=== PATIENT | female | born 1985 | race Caucasian/White ===

== ENCOUNTER → 2016-10-29 09:11 | Outpatient (CLI) | payer BC | END | disposition home or self-care (01) | LOC: D.US 09:00 | DX: N63 Unspecified lump in breast (principal) ==

== ENCOUNTER 2017-07-03 17:52 | Inpatient (IN) | payer BC ==
[~2017-07-03] VITALS: Ht 165.1 cm; Wt 46.0 kg
[2017-07-03 19:40] LABS: HEMATOCRIT 41.9 % (36.0-48.0); HEMOGLOBIN 14.3 g/dL (12-16); MCH 30.8 pg (26.0-34.0); MCHC 34.1 g/dL (31.0-37.0); MCV 90.1 fL (80.0-100.0); MEAN PLATELET VOLUME 11.1 fL (7.4-10.4); PLATELET COUNT 242 10x3/uL (130-400); RBC 4.65 10x6/uL (4.00-5.40); RDW 12.9 % (11.5-14.5); WBC 11.1 10x3/uL (4.8-10.8)
--- NOTE | 2017-07-03 19:47 | NUR ---
PT LYING IN BED, AWAKE, ALERT, ORIENTED, CONSTANT DRY COUGH, MOM AT BEDSIDE. PT DENIES ANY NEEDS AT THIS TIME. WILL CONTINUE TO MONITOR CLOSELY.
[2017-07-03 19:58] LABS: ALBUMIN 4.4 g/dL (3.4-5.0); ALKALINE PHOSPHATASE 41 U/L (46-116); ALT (SGPT) 30 U/L (10-68); BILIRUBIN - TOTAL 0.28 mg/dL (0.2-1.3); CALC OSMOLALITY 280 mosm/kg (275-300); CALCIUM 9.2 mg/dL (8.5-10.1); CHLORIDE - SERUM 102 mmol/L (98-107); CREATININE - SERUM 0.8 mg/dL (0.6-1.3); GLUCOSE 116 mg/dL (74-106); POTASSIUM - SERUM 3.9 mmol/L (3.5-5.1); PROTEIN - SERUM 7.6 g/dL (6.4-8.2); SODIUM 141 mmol/L (136-145); UREA NITROGEN 11 mg/dL (7-18); eGFR NON AFRICAN AMERICAN 89 mL/min (90-120)
[2017-07-03 20:00] VITALS: BP 117/73
--- NOTE | 2017-07-03 20:40 | NUR ---
PT TAKEN VIA WHEELCHAIR TO X-RAY. PATIENTS MOTHER WAS UNHAPPY THAT THE MEDICATIONS ORDERED WERE NOT GOING TO BE STARTED UNTIL IN THE MORNING. I EXPLAINED TO MOTHER AND PATIENT THAT IT WAS JUST THE WAY THE ORDERS WERE ENTERED BY THE PHARMACIST, THEREFORE I CHANGED THE INITIAL ADMINISTRATION TIMES TO BEGIN TONIGHT @ 21:00. PT NOW RETURNED FROM X-RAY. WILL ADMINISTER MEDS AND CONTINUE TO MONITOR CLOSELY.
[2017-07-03] MEDS ORDERED: KLONOPIN1 MG PO (20:55)
[2017-07-03] MEDS ORDERED: IMIPRAMINE10 MG PO (20:55)
[2017-07-03] MEDS ORDERED: DYMISTA NASAL (20:56)
[2017-07-03] MEDS ORDERED: ETHIN (20:57)
[2017-07-03] MEDS ORDERED: NORETH (20:57)
[2017-07-03] MEDS ORDERED: STERAPRED DS 1010 MG PO (20:58)
[2017-07-03] MEDS ORDERED: PULMICORT 11 MG/2 ML NEB (20:58)
[2017-07-03] MEDS ORDERED: LEVAQUIN500 MG (20:58)
[2017-07-03] MEDS ORDERED: ADVAIR HFA [SP]12 GM INH (20:59)
[2017-07-03] MEDS ORDERED: CHERATUSSIN AC473 ML PO (20:59)
[2017-07-03 21:35] LABS: LYMPHOCYTES 5 % (15-50); NEUTROPHILS 95 % (40-80); PLATELET ESTIMATE NORMAL
--- NOTE | 2017-07-03 22:58 | NUR ---
IV ORIGINALLY INSERTED IN LEFT FOREARM, 1 STICK, 22 GAUGE, FLUSHED WELL, NO DIFFICULTY. DURING THE ADMINISTRATION OF IVP ROCEPHIN, DILUTED PROPERLY WITH 10MLS OF STERILE WATER, AND PUSHED SLOWLY, THE IV BEGAN TO BURN, EVENTUALLY CAUSING REDNESS AT THE INSERTION SITE AND GREAT DISCOMFORT TO PATIENT. I HAVE REMOVED THE IV TO LEFT FOREARM WITH CATH TIP INTACT. PT DID RECEIVE A TOTAL OF 3MLS = TO 300MG OF ROCEPHIN. I HAVE WRAPPED PTS LEFT FOREARM IN A WARM BLANKET FOR COMFORT AND WILL APPLY AN ICE PACK AT PTS REQUEST. PT HAS HER FATHER AND FRIEND/FAMILY MEMBER AT BEDSIDE AT THIS TIME. WILL CONTINUE TO MONITOR CLOSELY.
[2017-07-04] VITALS (7 sets, daily range): BP systolic 92–117; BP diastolic 44–73; Ht 165.1 cm; Wt 46.0 kg
--- NOTE | 2017-07-04 02:48 | NUR ---
DURING PTS INITIAL MEDICATION ADMINISTRATION, THE ORDERED ASTELIN AND FLONASE WERE NOT GIVEN AND WILL BE SENT BACK TO PHARMACY, PT HAS HER OWN HOME MEDICATION/NASAL SPRAY WITH HER. AFTER SPEAKING WITH PT, MOTHER, AND FATHER, IT WAS DECIDED THE BEST THING WAS FOR PT TO RESUME TAKING HER HOME MEDICATIONS, SHE HAS THEM ALL WITH HER, INCLUDING THE COUGH RX WITH CODEINE Q 6 HOURS PRN. I DID ASK FOR PT NOT TO TAKE HER PRN KLONOPIN R/T IT BEING A CONTROLLED SUBSTANCE, AND TO PLEASE CALL FOR IT PRN. PT HAS AGREED TO DO SO. PT IS TO NOTIFY US WHEN SHE DOES TAKE HER HOME MEDICATIONS. LAST DOSE OF HER CHERATUSSIN WAS TAKEN @ 23:00. PT IS CURRENTLY RESTING COMFORTABLY AT THIS TIME, WILL CONTINUE TO MONITOR CLOSELY.
--- NOTE | 2017-07-04 07:30 | NUR ---
ASSESSMENT COMPLETED. IV TO LEFT FA. TAKES OWN MEDS. NO TELEMERTY. FAMILY AT BEDSIDE. CALL LIGHT IN REACH WITH SR UP. WILL MONITOR
--- NOTE | 2017-07-04 13:48 | NUR ---
PT RESTING IN BED WITH FAMILY PRESENT. COUGHING BUT NON PRODUCTIVE COUGH. REQUESTING BREATHING TREATMENT. RESP NOTIFIED.
--- NOTE | 2017-07-04 18:39 | NUR ---
PT WAS MOVED FROM 2123 TO 2100. FAMILY AT BEDSIDE. NO NEEDS VOICED
--- NOTE | 2017-07-04 22:08 | NUR ---
PATIENT IS A&O X 4, FAMILY AT [facility], SIDERAILS UP X 2, BED IN LOWEST POSITION AND LOCKED, NO TELMETRY, NO NEEDS VOICED, WILL CONTINUE TO MONITOR.
--- NOTE | 2017-07-04 22:21 | NUR ---
PATIENT A&O X 4 , FAMILY AT BEDSIDE, SIDERAILS UP X 2 , BED IN LOWEST POSITION AND LOCKED, NO TELEMETRY, LEFT FOREARM SALINE LOCK, PATENT AND FLUSHED, NO NEEDS AT THIS TIME, WILL CONTINUE PLAN OF CARE.
[2017-07-05 05:06] VITALS: BP 96/52
--- NOTE | 2017-07-05 07:43 | NUR ---
AM ROUNDING- RECEIVED REPORT FROM SECURITY SHIFT MANAGER NURSE MARCELLE. PT IS CURRENTLY LAYING IN BED ON LEFT SIDE WITH EYES CLOSED RESTING. GUEST MEMBER IS AT BEDSIDE. ON ROOM AIR. NO MONITOR. IV SEEN TO LEFT FOREARM THAT IS CURRENTLY SALINE LOCKED. NO NEED AT THIS CURRENT TIME. WILL CONTINUE TO MONITOR AND CONTINUE WITH PLAN OF CARE.
[2017-07-05 09:17] VITALS: BP 102/57; BP 126/58
[2017-07-05 13:14] VITALS: BP 96/55
[2017-07-05 14:29] LABS: BASOPHILS 0 % (0-2); EOSINOPHILS 0 % (0-7); HEMOGLOBIN 13.4 g/dL (12-16); IMMATURE GRANULOCYTES 0.4 % (0-5); LYMPHOCYTES 2.5 % (15-50); MCH 31.1 pg (26.0-34.0); MCHC 34.4 g/dL (31.0-37.0); MCV 90.5 fL (80.0-100.0); MEAN PLATELET VOLUME 11.2 fL (7.4-10.4); MONOCYTES 5.5 % (2-11); NEUTROPHILS 91.6 % (40-80); PLATELET COUNT 249 10x3/uL (130-400); RBC 4.31 10x6/uL (4.00-5.40); RDW 12.9 % (11.5-14.5); WBC 14.1 10x3/uL (4.8-10.8)
[2017-07-05 14:40] LABS: ANION GAP 12.6 mmol/L (8-16); CALCIUM 8.9 mg/dL (8.5-10.1); CARBON DIOXIDE 28.2 mmol/L (21.0-32.0); CREATININE - SERUM 1.1 mg/dL (0.6-1.3); POTASSIUM - SERUM 3.8 mmol/L (3.5-5.1)
[2017-07-05 17:14] VITALS: BP 113/65
--- NOTE | 2017-07-05 17:55 | NUR ---
PT IS SITTING UP IN BED WITH EYES OPEN RESTING. GUEST IS AT BEDSIDE. PT DENIES ANY NEED AT THIS TIME. WILL CONTINUE TO MONITOR.
[2017-07-05 20:00] VITALS: BP 108/55
[2017-07-06] VITALS: BP 94/49
--- NOTE | 2017-07-06 01:11 | NUR ---
PT IS RESTING WELL IN BED, RESPIRATIONS EVEN AND UNLABORED. CALL LIGHT IN REACH. WILL CONTINUE TO MONITOR.
[2017-07-06 04:00] VITALS: BP 99/50
--- NOTE | 2017-07-06 07:15 | NUR ---
RECEIVED REPORT. ASSUMED CARE OF PATIENT. SITTING UP IN BED WITH EYES OPEN. NO DISTRESS. DENIES NEEDS. RESP EVEN AND UNLABORED.
[2017-07-06 08:14] VITALS: BP 110/62
--- NOTE | 2017-07-06 09:52 | NUR ---
PATIENT IV INFILTRATED DURING FLUSH. 22 GAUGE IV REMOVED FROM LEFT HAND. CATHETER TIP INTACT. NO BLEEDING TO SITE. 2X2 GAUZE APPLIED AND SECURED WITH TAPE. NO DISTRESS.
--- NOTE | 2017-07-06 10:30 | NUR ---
PATIENT REFUSED IV REINSERTION AT THIS TIME. PATIENT IS HOPING SHE GETS DISCHARGED. NO IV MEDICATIONS DUE FOR ADMINISTRATION UNTIL 2099. CALL LIGHT WITHIN REACH. NO DISTRESS.
[2017-07-06 11:35] VITALS: BP 123/76
[2017-07-06] MEDS ORDERED: PROMETHAZINE W473 M1 PO (15:57)
[2017-07-06] MEDS ORDERED: SINGULAIR10 MG PO (16:03)
[2017-07-06] MEDS ORDERED: BENZONATATE200 MG PO (16:04)
[2017-07-06] MEDS ORDERED: MUCINEX DM ER1 EAC1 PO (16:04)
[2017-07-06] MEDS ORDERED: DOXYCYCLINE HY100 M2 PO (16:05)
[2017-07-06] MEDS ORDERED: OMNICEF300 MG PO (16:05)
[2017-07-06] MEDS ORDERED: PREDNISONE10 MG PO (16:06)
[2017-07-06] MEDS ORDERED: FLORAJEN3 CAPS460 MG PO (16:06)
[2017-07-06 16:20] VITALS: BP 109/65
--- NOTE | 2017-07-06 17:20 | NUR ---
1705 DISCHARGE INSTRUCTIONS PROVIDED TO PATIENT AND HER FATHER. HARD SCRIPT GIVEN FOR COUGH SYRUP. PATIENT VERBALIZED UNDERSTANDING OF ALL INSTRUCTIONS PROVIDED AND HAD NO QUESTIONS FOR THIS SCRAP SEPARATOR. 1710 PATIENT AMUBLATED JOSE ARMANDO UNIT WITH HER FATHER. PATIENT REFUSED WHEELCHAIR. PATIENT LEFT UNIT WITH ALL PERSONAL BELONGINGS. PATIENT IN NO DISTRESS UPON LEAVING UNIT.
--- NOTE | 2017-08-09 12:26 | DS ---
PATIENT:JAN AGUAYO :87 MEDICAL RECORD: [id number] DISCHARGE SUMMARY ADMISSION DATE: 07/04/17 DISCHARGE DATE: 07/06/17 DATE OF ADMISSION: 07/04/2017 DATE OF DISCHARGE: 07/06/2017. DISCHARGE DIAGNOSES: 1. Acute exacerbation of asthma. 2. Acute bronchitis. 3. Paroxysmal coughing. 4. Atypical chest pain. CONSULTS: Dr. Layne. IMAGES AND STUDIES: Chest x-ray which showed no acute findings. HOSPITAL COURSE: The full H&P is listed elsewhere in the chart for this 32-year-old female patient who has failed outpatient therapy for bronchitis with fluoroquinolone. The patient was admitted to the inpatient setting with exacerbation of asthma, who has failed outpatient therapy with Levaquin. The patient was admitted into the acute setting. A pulmonary consult was obtained. The patient was started on aggressive pulmonary toilet with DuoNeb updrafts as well as doxazosin, some mucolytics, and IV steroids. The patient's symptomatology improved with aggressive pulmonary toilet. Her chest x-rays remained clear of infiltrate or infectious process. Steroids were tapered. Clinical condition began to improve and patient was thought to be stable for discharge to home. See med rec. TRANSINT:[id number] Voice Confirmation ID: [id number] DOCUMENT ID: [id number] Dictated By: ETHEL KEVIN I have interviewed/examined the above patient and agree with these documented findings. BEST GUZMÁN MD at 1226 at 1433 CC: [id number] DICTATION DATE: 07/31/17 1621 FRONT OFFICE HELP: 08/01/17 0804 DIS IN 07/06/17 [id number] [place] [address]
== END 2017-07-06 17:10 | disposition home or self-care (01) | DRG 202 ==
LOC: D.MS 17:52 → OBSVTIME 18:15 → D.M2 18:15
PROVIDERS: Family Medicine; ADMIT Emergency Medicine
DX: J20.9 Acute bronchitis, unspecified (principal); J45.901 Unspecified asthma with (acute) exacerbation; K50.90 Crohn's disease, unspecified, without complications; E46 Unspecified protein-calorie malnutrition; Z68.1 Body mass index [BMI] 19.9 or less, adult; F41.9 Anxiety disorder, unspecified

== ENCOUNTER → 2017-07-15 10:58 | Outpatient (CLI) | payer BC ==
[2017-07-04 13:31] VITALS: BMI 16.2
[~2017-07-15 10:58] MED LIST: ADVAIR HFA [SP]12 GM INH; BENZONATATE200 MG PO; CHERATUSSIN AC473 ML PO; DOXYCYCLINE HY100 M2 PO; DYMISTA NASAL; ETHIN; FLORAJEN3 CAPS460 MG PO; IMIPRAMINE10 MG PO; KLONOPIN1 MG PO; LEVAQUIN500 MG; MUCINEX DM ER1 EAC1 PO; NORETH; OMNICEF300 MG PO; PREDNISONE10 MG PO; PROMETHAZINE W473 M1 PO; PULMICORT 11 MG/2 ML NEB; SINGULAIR10 MG PO; STERAPRED DS 1010 MG PO
[2017-07-15 11:52] LABS: HEMATOCRIT 39.8 % (36.0-48.0); HEMOGLOBIN 13.3 g/dL (12-16); MCH 30.5 pg (26.0-34.0); MCHC 33.4 g/dL (31.0-37.0); MCV 91.3 fL (80.0-100.0); MEAN PLATELET VOLUME 11.7 fL (7.4-10.4); RBC 4.36 10x6/uL (4.00-5.40); RDW 14.1 % (11.5-14.5); WBC 16.9 10x3/uL (4.8-10.8)
[2017-07-15 11:56] LABS: APPEARANCE CLEAR (CLEAR); BILIRUBIN NEGATIVE (NEGATIVE); COLOR YELLOW (YELLOW); GLUCOSE NEGATIVE (NEGATIVE); KETONE NEGATIVE (NEGATIVE); NITRITE NEGATIVE (NEGATIVE); PROTEIN NEGATIVE (NEGATIVE); UROBILINOGEN NORMAL (NORMAL)
[2017-07-15 11:57] LABS: PLATELET COUNT 181 10x3/uL (130-400)
[2017-07-15 12:05] LABS: ALKALINE PHOSPHATASE 58 U/L (46-116); ALT (SGPT) 101 U/L (10-68); BILIRUBIN - INDIRECT 0.12 mg/dL (0.00-1.00); BILIRUBIN - TOTAL 0.17 mg/dL (0.2-1.3); CALCIUM 8.4 mg/dL (8.5-10.1); CARBON DIOXIDE 33.8 mmol/L (21.0-32.0); CHLORIDE - SERUM 96 mmol/L (98-107); CREATININE - SERUM 0.9 mg/dL (0.6-1.3); MAGNESIUM - SERUM 2.4 mg/dL (1.8-2.4); PHOSPHOROUS 3.1 mg/dL (2.5-4.9); POTASSIUM - SERUM 4.2 mmol/L (3.5-5.1); PROTEIN - SERUM 5.7 g/dL (6.4-8.2); SODIUM 134 mmol/L (136-145); UREA NITROGEN 25 mg/dL (7-18); eGFR NON AFRICAN AMERICAN 77 mL/min (90-120)
[2017-07-15 12:09] LABS: BILIRUBIN - DIRECT 0.05 mg/dL (0.00-0.30); CALC OSMOLALITY 271 mosm/kg (275-300); GLUCOSE 102 mg/dL (74-106)
[2017-07-15 12:24] LABS: C-REACTIVE PROTEIN < 0.2 mg/dL (0.0-0.9)
[2017-07-15 12:29] LABS: LYMPHOCYTES 11 % (15-50); MONOCYTES 5 % (2-11); NEUTROPHILS 79 % (40-80); PLATELET ESTIMATE NORMAL
[2017-07-15 12:56] LABS: ERYTHROCYTE SEDIMENTATION RATE 1 mm/hr (0-20)
== END | disposition home or self-care (01) ==
LOC: D.LAB 10:58
PROVIDERS: Nurse Practitioner Family
DX: J45.909 Unspecified asthma, uncomplicated (principal); M79.606 Pain in leg, unspecified; R10.9 Unspecified abdominal pain

== ENCOUNTER → 2017-07-24 14:55 | Outpatient (CLI) | payer BC ==
[2017-07-04 13:31] VITALS: BMI 16.2
== END | disposition home or self-care (01) ==
LOC: D.MRI 14:55
DX: M54.5 Low back pain (principal)

== ENCOUNTER → 2017-11-12 11:28 | Outpatient (CLI) | payer BC ==
[2017-07-04 13:31] VITALS: BMI 16.2
== END | disposition home or self-care (01) ==
LOC: D.CT 11:00
DX: R10.31 Right lower quadrant pain (principal)

== ENCOUNTER 2018-10-17 09:49 | Outpatient (CLI) | payer BC ==
[~2018-10-17] VITALS: Ht 165.1 cm; Wt 50.9 kg
[2018-10-17 10:29] LABS: BASOPHILS 0.5 % (0-2); EOSINOPHILS 1.6 % (0-7); HEMATOCRIT 41.2 % (36.0-48.0); IMMATURE GRANULOCYTES 0.2 % (0-5); LYMPHOCYTES 33.8 % (15-50); MCH 30.3 pg (26.0-34.0); MCV 89.2 fL (80.0-100.0); MEAN PLATELET VOLUME 11.1 fL (7.4-10.4); MONOCYTES 9.1 % (2-11); NEUTROPHILS 54.8 % (40-80); RBC 4.62 10x6/uL (4.00-5.40); RDW 12.8 % (11.5-14.5); WBC 6.2 10x3/uL (4.8-10.8)
[2018-10-17 10:30] LABS: PLATELET COUNT 266 10x3/uL (130-400)
[2018-10-17 10:38] LABS: ALBUMIN 4.3 g/dL (3.4-5.0); ALKALINE PHOSPHATASE 50 U/L (46-116); ALT (SGPT) 25 U/L (10-68); BILIRUBIN - TOTAL 0.46 mg/dL (0.2-1.3); CALC OSMOLALITY 282 mosm/kg (275-300); CALCIUM 8.9 mg/dL (8.5-10.1); CARBON DIOXIDE 29.3 mmol/L (21.0-32.0); CHLORIDE - SERUM 105 mmol/L (98-107); CREATININE - SERUM 0.8 mg/dL (0.6-1.3); GLUCOSE 88 mg/dL (74-106); MAGNESIUM - SERUM 1.9 mg/dL (1.8-2.4); PHOSPHOROUS 3.8 mg/dL (2.5-4.9); POTASSIUM - SERUM 3.9 mmol/L (3.5-5.1); PROTEIN - SERUM 7.5 g/dL (6.4-8.2); SODIUM 143 mmol/L (136-145); UREA NITROGEN 9 mg/dL (7-18); eGFR NON AFRICAN AMERICAN 88 mL/min (90-120)
[2018-10-17 10:42] VITALS: BP 105/71; Ht 165.1 cm; Wt 50.9 kg
--- NOTE | 2018-10-17 12:00 | NUR ---
PT RESTING QUIETLY IN BED. DENIES NEEDS/PAIN AT THIS TIME.
--- NOTE | 2018-10-17 13:36 | NUR ---
PT IN BED. 1 SIDE RAIL UP. CALL LIGHT WITHIN REACH. DENIES PAIN/NEEDS AT THIS TIME.
== END 2018-10-17 13:56 | disposition home or self-care (01) ==
LOC: D.OPS 09:49
PROVIDERS: ATTEND Surgery
DX: E86.0 Dehydration (principal)

== ENCOUNTER 2018-12-08 13:52 | Outpatient (CLI) | payer BC ==
[2018-12-08 14:16] LABS: BASOPHILS 0.2 % (0-2); EOSINOPHILS 0.3 % (0-7); HEMATOCRIT 40.8 % (36.0-48.0); HEMOGLOBIN 14.1 g/dL (12-16); IMMATURE GRANULOCYTES 0.2 % (0-5); LYMPHOCYTES 21.6 % (15-50); MCH 30.4 pg (26.0-34.0); MCHC 34.6 g/dL (31.0-37.0); MCV 87.9 fL (80.0-100.0); MEAN PLATELET VOLUME 11.3 fL (7.4-10.4); MONOCYTES 8.3 % (2-11); NEUTROPHILS 69.4 % (40-80); PLATELET COUNT 226 10x3/uL (130-400); RBC 4.64 10x6/uL (4.00-5.40); RDW 12.1 % (11.5-14.5)
[2018-12-08 14:25] VITALS: BP 115/75; BMI 17.3
[2018-12-08 14:34] LABS: ALBUMIN 4.6 g/dL (3.4-5.0); ALKALINE PHOSPHATASE 58 U/L (46-116); ALT (SGPT) 32 U/L (10-68); CALC OSMOLALITY 262 mosm/kg (275-300); CALCIUM 8.9 mg/dL (8.5-10.1); CARBON DIOXIDE 27.6 mmol/L (21.0-32.0); CHLORIDE - SERUM 96 mmol/L (98-107); CREATININE - SERUM 0.9 mg/dL (0.6-1.3); GLUCOSE 83 mg/dL (74-106); MAGNESIUM - SERUM 1.8 mg/dL (1.8-2.4); PHOSPHOROUS 3.1 mg/dL (2.5-4.9); PROTEIN - SERUM 7.6 g/dL (6.4-8.2); SODIUM 133 mmol/L (136-145); UREA NITROGEN 8 mg/dL (7-18); eGFR NON AFRICAN AMERICAN 77 mL/min (90-120)
--- NOTE | 2018-12-08 16:39 | NUR ---
CALLED DR LEAVITT AT THIS TIME TO SPECIFY RATE OF BANNANA BAG. DR LEAVITT STATES TO BOLUS BAG IN.
== END 2018-12-08 17:58 | disposition home or self-care (01) ==
LOC: D.OPS 13:52
PROVIDERS: ATTEND Surgery
DX: E86.0 Dehydration (principal)

== ENCOUNTER 2019-06-22 09:54 | Outpatient (CLI) | payer BC ==
[~2019-06-22] VITALS: Ht 165.1 cm; Wt 43.2 kg
[2019-06-22 10:36] VITALS: BP 111/56; Ht 165.1 cm; Wt 43.2 kg
--- NOTE | 2019-06-22 15:37 | NUR ---
BP: 117/60 P:72 R:16 O2: 100 PT DC INSTRUCTIONS REVIEWED AT THIS TIME, PT VERBALIZES UNDERSTANDING. PT IV REMOVED AT THIS TIME, INTACT, NO REDNESS OR SWELLING NOTED AT SITE.
--- NOTE | 2019-06-22 15:39 | NUR ---
PT LEAVING OPS AT THIS TIME, NAD NOTED.
== END 2019-06-22 15:40 | disposition home or self-care (01) ==
LOC: D.OPS 09:54
PROVIDERS: ATTEND Registered Nurse Emergency
DX: E46 Unspecified protein-calorie malnutrition (principal)

== ENCOUNTER 2020-01-05 19:00 | Outpatient (CLI) | payer BC ==
[2019-06-22 10:36] VITALS: BMI 15.8
== END 2020-01-05 23:59 | disposition home or self-care (01) ==
LOC: D.MAMMO 19:00
PROVIDERS: ATTEND Registered Nurse Emergency
DX: Z12.31 Encounter for screening mammogram for malignant neoplasm of breast (principal)

== ENCOUNTER 2020-10-11 11:26 | Outpatient (CLI) | payer BC ==
[~2020-10-11] VITALS: Ht 165.1 cm; Wt 51.4 kg
[2020-10-11 12:03] LABS: ALBUMIN 4.2 g/dL (3.4-5.0); ALKALINE PHOSPHATASE 53 U/L (30-120); ALT (SGPT) 18 U/L (10-68); BILIRUBIN - TOTAL 0.35 mg/dL (0.2-1.3); CALC OSMOLALITY 268 mosm/kg (275-300); CALCIUM 8.9 mg/dL (8.5-10.1); CARBON DIOXIDE 30.3 mmol/L (21.0-32.0); CHLORIDE - SERUM 102 mmol/L (98-107); CREATININE - SERUM 0.9 mg/dL (0.6-1.3); GLUCOSE 95 mg/dL (74-106); PHOSPHOROUS 2.8 mg/dL (2.5-4.9); POTASSIUM - SERUM 4.4 mmol/L (3.5-5.1); PROTEIN - SERUM 7.4 g/dL (6.4-8.2); SODIUM 135 mmol/L (136-145); UREA NITROGEN 11 mg/dL (7-18); eGFR NON AFRICAN AMERICAN 76 mL/min (90-120)
[2020-10-11 12:38] LABS: BASOPHILS 0.2 % (0-2); EOSINOPHILS 1.8 % (0-7); HEMATOCRIT 42.6 % (36.0-48.0); HEMOGLOBIN 14.2 g/dL (12-16); IMMATURE GRANULOCYTES 0.2 % (0-5); LYMPHOCYTE ABS# 1.66 10x3/uL (1.18-3.74); LYMPHOCYTES 30.3 % (15-50); MCHC 33.3 g/dL (31.0-37.0); MEAN PLATELET VOLUME 10.8 fL (7.4-10.4); MONOCYTES 11.7 % (2-11); NEUTROPHIL ABS# 3.05 10x3/uL (1.56-6.13); NEUTROPHILS 55.8 % (40-80); PLATELET COUNT 264 10x3/uL (130-400); RBC 4.58 10x6/uL (4.00-5.40); RDW 13.5 % (11.5-14.5); WBC 5.5 10x3/uL (4.8-10.8)
[2020-10-11 13:39] VITALS: Ht 165.1 cm; Wt 51.4 kg
--- NOTE | 2020-10-11 16:40 | NUR ---
DC INSTRUCTIONS GIVEN TO PT. STATES UNDERSTANDING. DC'D IV CATH FULLY INTACT.
--- NOTE | 2020-10-11 16:42 | NUR ---
PT LEFT UNIT AMBULATING AT 1640
== END 2020-10-11 16:40 | disposition home or self-care (01) ==
LOC: D.OPS 11:26 → D.LAB 11:26 → D.OPS 16:40
PROVIDERS: ATTEND Surgery
DX: E86.0 Dehydration (principal)

== ENCOUNTER → 2020-11-07 09:10 | Outpatient (CLI) | payer BC ==
[2020-10-11 13:39] VITALS: BMI 18.8
== END | disposition home or self-care (01) ==
LOC: D.MRI 09:00
PROVIDERS: ATTEND Family Medicine
DX: I77.1 Stricture of artery (principal)

== ENCOUNTER → 2020-11-08 11:19 | Outpatient (CLI) | payer BC ==
[2020-10-11 13:39] VITALS: BMI 18.8
== END | disposition home or self-care (01) ==
LOC: D.CT 11:19
PROVIDERS: ATTEND Family Medicine
DX: I77.1 Stricture of artery (principal)

== ENCOUNTER 2021-01-11 23:25 | Emergency (ER) | payer BC ==
[~2021-01-11] VITALS: Ht 165.1 cm; Wt 50.0 kg
[2021-01-11 23:33] VITALS: Ht 165.1 cm; Wt 50.0 kg
[2021-01-11] MEDS ORDERED: BREO ELLIPTA 11 EACH INH (23:34)
[2021-01-11] MEDS ORDERED: PRISTIQ50 MG PO (23:36)
[2021-01-12 00:51] LABS: BASOPHILS 0.5 % (0-2); EOSINOPHILS 0.7 % (0-7); HEMATOCRIT 39.2 % (36.0-48.0); HEMOGLOBIN 12.9 g/dL (12-16); LYMPHOCYTES 29.1 % (15-50); MCH 30.1 pg (26.0-34.0); MCV 91.2 fL (80.0-100.0); MEAN PLATELET VOLUME 9.4 fL (7.4-10.4); MONOCYTES 10.9 % (2-11); NEUTROPHILS 58.8 % (40-80); PLATELET COUNT 233 10x3/uL (130-400); WBC 6.1 10x3/uL (4.8-10.8)
[2021-01-12 01:02] LABS: HCG URINE NEGATIVE (NEGATIVE)
[2021-01-12 01:02] LABS: CALC OSMOLALITY 277 mosm/kg (275-300); CALCIUM 8.7 mg/dL (8.5-10.1); CARBON DIOXIDE 30.7 mmol/L (21.0-32.0); CHLORIDE - SERUM 102 mmol/L (98-107); CREATININE - SERUM 0.7 mg/dL (0.6-1.3); GLUCOSE 96 mg/dL (74-106); POTASSIUM - SERUM 4.1 mmol/L (3.5-5.1); SODIUM 139 mmol/L (136-145); UREA NITROGEN 13 mg/dL (7-18); eGFR NON AFRICAN AMERICAN > 90 mL/min (90-120)
[2021-01-12 01:06] LABS: BILIRUBIN NEGATIVE (NEGATIVE); KETONE NEGATIVE mg/dL (< 1+); NITRITE NEGATIVE (NEGATIVE); UROBILINOGEN NORMAL mg/dL (< 2)
[2021-01-12 01:09] LABS: ALBUMIN 4.2 g/dL (3.4-5.0); ALKALINE PHOSPHATASE 37 U/L (30-120); ALT (SGPT) 20 U/L (10-68); BILIRUBIN - TOTAL 0.29 mg/dL (0.2-1.3); C-REACTIVE PROTEIN < 0.2 mg/dL (0.0-0.9); LIPASE 56 U/L (73-393); PROTEIN - SERUM 7.4 g/dL (6.4-8.2)
[2021-01-12 01:14] LABS: BACTERIA FEW HPF (<MOD); SQUAMOUS EPITHELIAL 1 HPF (0-4); WHITE CELLS - URINE <1 HPF (0-4)
[2021-01-12 04:40] VITALS: BP 116/84
== END 2021-01-12 04:40 | disposition home or self-care (01) ==
LOC: D.ER 23:25
PROVIDERS: Family Medicine
DX: N94.89 Other specified conditions associated with female genital organs and menstrual cycle (principal); R10.2 Pelvic and perineal pain; R31.9 Hematuria, unspecified